=== PATIENT | female | born 2000 | race Two or more races ===

== ENCOUNTER 2020-09-19 15:10 | Emergency (ER) | payer MEDICAID ==
[~2020-09-19] VITALS: Ht 165.1 cm; Wt 71.3 kg
--- NOTE | 2020-09-19 16:41 | NUR ---
NO ANSWER TO RM
--- NOTE | 2020-09-19 16:55 | NUR ---
TO [facility] FROM LOBBY
[2020-09-19 17:15] LABS: BASOPHILS % (AUTO) 1 % (0-1); EOSINOPHILS % (AUTO) 1 % (1-7); LYMPHOCYTES % (AUTO) 14 % (22-44); MEAN CORPUSCULAR HEMOGLOBIN 26.2 pg (27.0-34.8); MEAN CORPUSCULAR HGB CONC 31.9 g/dL (32.4-35.8); MEAN PLATELET VOLUME 8.1 fL (7.4-10.4); MONOCYTES % (AUTO) 6 % (2-9); NEUTROPHILS % (AUTO) 79 % (42-75); PLATELET COUNT 347 x10^3/uL (130-400); RED BLOOD COUNT 4.88 x10^6/uL (3.82-5.3); RED CELL DISTRIBUTION WIDTH 15.6 % (9.6-15.2)
[2020-09-19 17:19] LABS: MD NO
[2020-09-19] MEDS ORDERED: MAALOX/HYOSCYAMINE/LIDOCAINE 45 ML BTL ONE (17:22)
[2020-09-19] MEDS ORDERED: ONDANSETRON ODT 4 MG ONE (17:22)
--- NOTE | 2020-09-19 17:26 | NUR ---
PT MEDICATED PER EMAR, AMBULATES WELL TO BATHROOM FOR UA COLLECTION AND BACK IN BED. NAD NOTED AT THIS TIME. RESPIRATIONS EVEN AND UNLABORED ON RA.
[2020-09-19 17:30] LABS: ALBUMIN 3.6 g/dL (3.4-5.0); ANION GAP 6 mmol/L (5-15); CALCIUM 8.6 mg/dL (8.5-10.1); CHLORIDE 107 mmol/L (98-107)
[2020-09-19] MEDS ORDERED: MAALOX/HYOSCYAMINE/LIDOCAINE 45 ML BTL PO ONE (17:30)
[2020-09-19] MEDS ORDERED: ONDANSETRON ODT 4 MG PO ONE (17:30)
[2020-09-19 17:56] LABS: MICROSCOPIC INDICATED
[2020-09-19 18:21] LABS: ALANINE AMINOTRANSFERASE 14 U/L (12-78); ALKALINE PHOSPHATASE 60 U/L (45-117); BILIRUBIN,TOTAL 0.4 mg/dL (0.2-1.0); CREATININE 0.64 mg/dL (0.55-1.02); TOTAL PROTEIN 7.5 g/dL (6.4-8.2)
--- NOTE | 2020-09-19 18:31 | NUR ---
PT CHART UP FOR RECHECK. NAD NOTED IN PT AT THIS TIME. RESPIRATIONS EVEN AND UNLABORED ON RA.
[2020-09-19 18:44] VITALS: BP 110/60
== END 2020-09-19 19:01 | disposition home or self-care (01) ==
LOC: ED 18:29
DX: O23.11 Infections of bladder in pregnancy, first trimester (principal); N30.00 Acute cystitis without hematuria; K29.00 Acute gastritis without bleeding; Z3A.01 Less than 8 weeks gestation of pregnancy
CPT/HCPCS: 36415; 76700; 76801; 80053; 81001; 83690; 84702; 85025; 87086; 99285; Q0162